=== PATIENT | male | born 1970 | race Two or more races ===

== ENCOUNTER 2022-10-31 16:07 | Emergency (ER) | payer OTHER, MEDICAID, SELFPAY ==
--- NOTE | ~2022-10-31 | CT_ITS ---
EXAMINATION: CT CERVICAL SPINE WITHOUT CONTRAST CLINICAL INFORMATION: Right visual changes. COMPARISON: None available. TECHNIQUE: Multiple axial images of the cervical spine were obtained without the administration of intravenous contrast. Coronal and sagittal reformatted images were obtained. This CT examination was performed using dose optimization techniques as appropriate, variously including the following: *Automated exposure control *Adjustment of mA and/or kV according to patient size (this includes techniques or standardized protocols for targeted exams where dose is matched to indication/reason for exam; i.e. extremities or head) *Use of iterative reconstruction technique DLP: 489 mGy-cm FINDINGS: There is straightening of the normal cervical lordosis with normal spinal alignment. The patient is status post anterior fusion from C4-5 to C6-7 with good anatomic alignment and no evidence for hardware malfunction. Mild to moderate multilevel prominent anterior osteophyte formation is seen. The vertebral bodies are intact. Mild multilevel bilateral neural foraminal narrowing is seen. The facet joints show mild degenerative changes. The spinous and transverse processes are intact. The cervical soft tissues are unremarkable. The thyroid gland is unremarkable. No lymphadenopathy. The lung apices are clear. CT/CT cervical spine wo IV con IMPRESSION: 1. Straightening of the normal cervical lordosis may be secondary to positioning and/or muscle spasm. 2. Multilevel degenerative changes without acute abnormality.
--- NOTE | ~2022-10-31 | XR_ITS ---
EXAMINATION: XR SHOULDER, LEFT CLINICAL INFORMATION: Pain. COMPARISON: None available. TECHNIQUE: AP external rotation, Grashey, scapular Y, and axillary views of the left shoulder. FINDINGS: The bones and soft tissues are normal. No fracture. Glenohumeral and acromioclavicular alignment is anatomic with normal joint space. No abnormal soft tissue calcifications. XR/XR shoulder LT min 2V IMPRESSION: No significant abnormality identified.
--- NOTE | ~2022-10-31 | XR_ITS ---
EXAMINATION: XR HIP, LEFT CLINICAL INFORMATION: Pain. COMPARISON: None available. TECHNIQUE: Two views of the left hip. FINDINGS: No fracture. Alignment is anatomic. Hip joint space is maintained. Soft tissues are unremarkable. XR/XR hip LT w PEL1V IMPRESSION: No significant abnormality identified.
--- NOTE | ~2022-10-31 | XR_ITS ---
EXAMINATION: XR LUMBOSACRAL SPINE CLINICAL INFORMATION: Pain. COMPARISON: None available. TECHNIQUE: Three views of the lumbosacral spine. FINDINGS: The alignment is normal. There is mild diffuse thoracolumbar disc degenerative change with endplate sclerosis and osteophytes. The bone mineralization is normal. The vertebral body heights are maintained. The soft tissues are unremarkable. XR/XR lumbar spine 2-3V IMPRESSION: Mild diffuse thoracolumbar disc degenerative change. No fracture seen.
[2022-10-31 16:22] VITALS: BP 144/72; BP 151/94; PULSE 100; PULSE 88; RESP 15; TEMP 36.6; O2SAT 97; BMI 24.3
[2022-10-31] MEDS: Morphine Sulfate 4 MG/ML CARTRIDGE IM (17:45)
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
[2022-10-31 19:34] VITALS: BP 170/98; PULSE 80; RESP 18; TEMP 36.8; O2SAT 100
--- NOTE | 2022-10-31 19:35 | MHC.EDTECH ---
Patient given water
== END 2022-10-31 20:19 | disposition home or self-care (01) ==
PROVIDERS: Emergency Provider Emergency Medicine; PCP Internal Medicine
DX: S16.1XXA Strain of muscle, fascia and tendon at neck level, initial encounter (principal); V43.52XA Car driver injured in collision with other type car in traffic accident, initial encounter; M25.552 Pain in left hip; M25.512 Pain in left shoulder; Y93.89 Activity, other specified; Y92.414 Local residential or business street as the place of occurrence of the external cause; Y99.9 Unspecified external cause status
CPT/HCPCS: 72100; 72125; 73030; 73502; 96372; 99284; J2270